=== PATIENT | female | born 1995 | race Two or more races ===

== ENCOUNTER 2019-05-16 17:26 | Emergency (ER) | payer OTHER ==
[~2019-05-16] VITALS: Ht 160 cm; Wt 63.5 kg
[2019-05-16 17:32] VITALS: BP 100/56; Ht 160 cm; Wt 63.5 kg
== END 2019-05-16 18:30 | disposition home or self-care (01) ==
LOC: ED 17:26
DX: M54.42 Lumbago with sciatica, left side (principal); J45.909 Unspecified asthma, uncomplicated; Z91.018 Allergy to other foods
CPT/HCPCS: J1885